=== PATIENT | male | born 1960 | race African-American/Black ===

== ENCOUNTER 2021-04-08 08:26 | Day surgery (SDC) | payer OTHER ==
[~2021-04-08] VITALS: Ht 170.2 cm; Wt 87.4 kg
[2021-04-08] MEDS ORDERED: GLUCOPHAGE500 MG/TAB PO (08:59)
[2021-04-08] MEDS ORDERED: CRESTOR40 MG PO (08:59)
[2021-04-08] MEDS ORDERED: NORVASC 10MG10 MG PO (08:59)
[2021-04-08] MEDS ORDERED: MAXZIDE 50 MG-71 TAB PO (09:00)
[2021-04-08] MEDS ORDERED: COZAAR100 MG PO (09:00)
[2021-04-08] MEDS ORDERED: LANTUS100 U/ML SQ (09:01)
[2021-04-08] MEDS ORDERED: TRULICITY4.5 MG/0.5 SQ (09:01)
[2021-04-08] MEDS ORDERED: ASPIRIN 32325 MG/TAB PO (09:01)
[2021-04-08 09:04] VITALS: BP 124/84; PULSE 89; TEMP 98.5
[2021-04-08 10:30] VITALS: BP 98/76; PULSE 83; TEMP 97.5
--- NOTE | 2021-04-08 10:30 | NUR ---
Patient returned to [facility] via cart, transfered to chair with slow steady gait. Postop vital signs started. Blood pressure is low and inconsistent with admit BP, 98/76. Increased fluids and reclined patient. Patient denies any discomfort or symptoms of hypotension. Will continue to monitor closely.
[2021-04-08 10:45] VITALS: BP 98/85; PULSE 78
--- NOTE | 2021-04-08 10:45 | NUR ---
Patient sitting up in bed, denies discomfort. Alert and oriented. BP is low, but consistent. Patient agreed to try hot tea and muffin. Will continue to monitor closely.
[2021-04-08 11:00] VITALS: BP 98/76; PULSE 77
--- NOTE | 2021-04-08 11:00 | NUR ---
Patient sitting up in chair, denies discomfort. Vital signs remain consistent, BP low. Patinet up to bathroom. Steady gait, denies any symptoms of hypotension. tolerating food and drink well. Will continue to monitor.
[2021-04-08 11:15] VITALS: BP 119/79; PULSE 77
--- NOTE | 2021-04-08 11:15 | NUR ---
Vital signs stable, tolerating food and drink well. Patient denies any discomfort. reviewed discharge instructions and education materials, patient and verbalized undertanding. D/C IV with no complicaitons. Instructed to dress and call out when ready for transportation.
--- NOTE | 2021-04-08 11:27 | NUR ---
Tranfered patient via wheel chair to personal vehicle.
== END 2021-04-08 11:27 | disposition home or self-care (01) ==
LOC: SDCO 08:26
DX: Z12.11 Encounter for screening for malignant neoplasm of colon (principal); D12.5 Benign neoplasm of sigmoid colon; K57.30 Diverticulosis of large intestine without perforation or abscess without bleeding; E11.9 Type 2 diabetes mellitus without complications; I10 Essential (primary) hypertension; E78.5 Hyperlipidemia, unspecified; Z20.822 Contact with and (suspected) exposure to COVID-19; Z79.4 Long term (current) use of insulin; Z79.82 Long term (current) use of aspirin; Z79.899 Other long term (current) drug therapy
CPT/HCPCS: J2704; J7030

== ENCOUNTER → 2023-10-24 | Outpatient (CLI) | payer OTHER ==
[~2023-10-24] MED LIST: ASPIRIN 32325 MG/TAB PO; COZAAR100 MG PO; CRESTOR40 MG PO; GLUCOPHAGE500 MG/TAB PO; LANTUS100 U/ML SQ; MAXZIDE 50 MG-71 TAB PO; NORVASC 10MG10 MG PO; TRULICITY4.5 MG/0.5 SQ
== END ==
LOC: COL.RAD 09:59
DX: Z01.89 Encounter for other specified special examinations (principal); M47.816 Spondylosis without myelopathy or radiculopathy, lumbar region; M51.37 Other intervertebral disc degeneration, lumbosacral region; M51.27 Other intervertebral disc displacement, lumbosacral region

== ENCOUNTER → 2024-05-07 | Outpatient (CLI) | payer OTHER | LOC: MHCPAIN 12:48 | DX: M47.27 Other spondylosis with radiculopathy, lumbosacral region (principal); M51.27 Other intervertebral disc displacement, lumbosacral region; M48.061 Spinal stenosis, lumbar region without neurogenic claudication; E11.9 Type 2 diabetes mellitus without complications; Z79.84 Long term (current) use of oral hypoglycemic drugs; E78.5 Hyperlipidemia, unspecified; I10 Essential (primary) hypertension | CPT/HCPCS: G0463 ==

== ENCOUNTER → 2024-07-09 | Outpatient (CLI) | payer OTHER | LOC: MHCPAIN 08:50 | DX: M47.817 Spondylosis without myelopathy or radiculopathy, lumbosacral region (principal); M51.27 Other intervertebral disc displacement, lumbosacral region; E11.9 Type 2 diabetes mellitus without complications; Z79.4 Long term (current) use of insulin; E78.5 Hyperlipidemia, unspecified; I10 Essential (primary) hypertension | CPT/HCPCS: G0463 ==